=== PATIENT | female | born 1975 | race Caucasian/White ===

== ENCOUNTER → 2016-11-14 | Outpatient (CLI) | payer OTHER ==
[~2016-11-14] MED LIST: ASPIRIN ADULT L81 M1 PO; Carafate1 GM PO; FLEXERIL10 MG PO; IBUPROFEN600 MG PO; IRON50 MG PO; MOTRIN600 MG PO; NAPROSYN250 MG PO; NEXIUM40 MG PO; NKHM; NORCO 325 MG-51 TAB PO; PERCOCET 325 MG1 TA2 PO; PREDNICOT20 MG PO; PRILOSEC20 M1 PO; PRILOSEC20 MG PO; REGLAN10 MG PO; VITAMIN D1000 IU PO
== END | disposition home or self-care (01) ==
LOC: MAMMO 13:28
DX: Z12.31 Encounter for screening mammogram for malignant neoplasm of breast (principal)

== ENCOUNTER → 2017-03-13 | Outpatient (CLI) | payer OTHER | END | disposition home or self-care (01) | LOC: MRI 02-08 09:00 | DX: M25.562 Pain in left knee (principal); M22.8X2 Other disorders of patella, left knee ==

== ENCOUNTER → 2017-07-02 | Outpatient (CLI) | payer OTHER | END | disposition home or self-care (01) | LOC: ORTHO 02:05 | DX: M25.562 Pain in left knee (principal) ==

== ENCOUNTER → 2017-08-30 | Day surgery (SDC) | payer OTHER ==
[2017-08-28 12:19] LABS: BILIRUBIN NEGATIVE (NEGATIVE); BLOOD NEGATIVE (NEGATIVE); CLARITY SL CLOUDY (CLEAR); COLOR STRAW (YELLOW); GLUCOSE NEGATIVE (NEGATIVE); KETONE NEGATIVE (NEGATIVE); LEUKO ESTERASE NEGATIVE (NEGATIVE); NITRITE NEGATIVE (NEGATIVE); PH 5.5 (5.0-9.0); SPECIFIC GRAVITY <= 1.005 (1.005-1.030); UROBILINOGEN 0.2 E.U./dl (0.2-1.0)
[2017-08-28 12:41] LABS: BACTERIA TRACE; RBC 0-2 rbc/hpf (0-2)
[~2017-08-30] VITALS: Ht 167.6 cm; Wt 90.7 kg
[~2017-08-30] MED LIST changes: +IRON325 M1 PO; +PERCOCET 5-3251 EACH PO; +TOPAMAX100 M1 PO; +VITAMIN D5000 UNIT PO; +ZOFRAN4 MG PO
[2017-08-30 08:15] VITALS: BP 119/81
[2017-08-30 10:30] VITALS: BP 131/42
[2017-08-30 10:45] VITALS: BP 127/68
[2017-08-30 11:00] VITALS: BP 108/66
[2017-08-30 11:15] VITALS: BP 117/68
[2017-08-30 11:27] VITALS: BP 101/57
== END | disposition home or self-care (01) ==
LOC: SDC 08-14 08:00
PROVIDERS: Orthopaedic Surgery
DX: M22.42 Chondromalacia patellae, left knee (principal); M67.52 Plica syndrome, left knee; K21.9 Gastro-esophageal reflux disease without esophagitis; Z98.51 Tubal ligation status

== ENCOUNTER → 2017-10-19 | Outpatient (CLI) | payer OTHER ==
[2017-10-19 10:14] LABS: BASO % 0.4 % (0.0-1.0); EOS # 0.3 10*3/uL (0.0-0.4); EOS % 3.8 % (1.0-4.0); HEMATOCRIT 37.7 % (37.0-47.0); HEMOGLOBIN 11.8 g/dl (12.0-16.0); LYMPH # 2.3 10*3/uL (1.3-4.4); LYMPH % 30.5 % (27.0-41.0); MEAN CORPUSCULAR HGB 26.3 pg (27.0-31.0); MEAN CORPUSCULAR HGB CONC 31.3 g/dl (33.0-37.0); MEAN PLATELET VOLUME 9.3 fl (9.6-12.3); MONO # 0.6 10*3/uL (0.1-1.0); MONO % 7.8 % (3.0-9.0); NEUT # 4.4 10*3/uL (2.3-7.9); NEUT % 57.2 % (47.0-73.0); PLATELET COUNT AUTOMATED 316 10*3/uL (130-400); RED BLOOD COUNT 4.49 10*6/uL (4.10-5.10); WHITE BLOOD COUNT 7.7 10*3/uL (4.8-10.8)
[2017-10-19 10:39] LABS: ALBUMIN 3.1 gm/dl (3.1-4.5); ALKALINE PHOSPHATASE 85 U/L (45-117); BUN 11 mg/dl (7-24); CHLORIDE 109 mmol/L (98-107); CREATININE 0.75 mg/dL (0.55-1.02); FREE T4 0.97 ng/dl (0.76-1.46); POTASSIUM 3.8 mmol/L (3.5-5.1); SGOT/AST 19 IU/L (3-35); SGPT/ALT 20 U/L (12-78); SODIUM 139 mmol/L (136-145); TOTAL PROTEIN 7.1 gm/dL (6.4-8.2)
== END | disposition home or self-care (01) ==
LOC: LAB 09:45
PROVIDERS: Internal Medicine
DX: R20.2 Paresthesia of skin (principal)

== ENCOUNTER → 2017-12-31 | Outpatient (CLI) | payer OTHER | LOC: US 15:53 | DX: N92.0 Excessive and frequent menstruation with regular cycle (principal) ==

== ENCOUNTER 2019-03-01 15:24 | Emergency (ER) | payer OTHER ==
[~2019-03-01] VITALS: Ht 167.6 cm; Wt 96.6 kg
[2019-03-01 15:25] VITALS: BP 131/71
[2019-03-01] MEDS ORDERED: Motrin,Rufen800 MG PO (16:50)
== END 2019-03-01 18:00 | disposition home or self-care (01) ==
LOC: ED 15:24
DX: S93.491A Sprain of other ligament of right ankle, initial encounter (principal); Z98.51 Tubal ligation status; Z79.899 Other long term (current) drug therapy; W18.49XA Other slipping, tripping and stumbling without falling, initial encounter; Y93.89 Activity, other specified; Y92.89 Other specified places as the place of occurrence of the external cause; Y99.9 Unspecified external cause status

== ENCOUNTER → 2019-03-03 | Outpatient (CLI) | payer OTHER ==
[~2019-03-03] MED LIST changes: +Motrin,Rufen800 MG PO
== END | disposition home or self-care (01) ==
LOC: RAD 11:39
DX: M79.89 Other specified soft tissue disorders (principal); R60.0 Localized edema

== ENCOUNTER → 2020-06-15 | Outpatient (CLI) | payer OTHER | END | disposition home or self-care (01) | LOC: MAMMO 14:39 | PROVIDERS: ATTEND Internal Medicine | DX: Z12.31 Encounter for screening mammogram for malignant neoplasm of breast (principal); N64.89 Other specified disorders of breast ==

== ENCOUNTER → 2021-03-18 | Outpatient (CLI) | payer OTHER | END | disposition home or self-care (01) | LOC: RAD 10:01 | PROVIDERS: ATTEND Internal Medicine | DX: M25.561 Pain in right knee (principal); M25.562 Pain in left knee; M25.551 Pain in right hip ==

== ENCOUNTER → 2021-07-27 | Outpatient (CLI) | payer OTHER | END | disposition home or self-care (01) | LOC: US 14:00 | PROVIDERS: ATTEND Internal Medicine | DX: M79.89 Other specified soft tissue disorders (principal) ==

== ENCOUNTER → 2021-08-04 | Outpatient (CLI) | payer OTHER | END | disposition home or self-care (01) | LOC: RAD 10:48 | PROVIDERS: ATTEND Internal Medicine | DX: M25.562 Pain in left knee (principal) ==

== ENCOUNTER → 2024-02-22 | Outpatient (CLI) | payer BC, OTHER | END | disposition home or self-care (01) | LOC: ORTHO 01:57 | PROVIDERS: ATTEND Orthopaedic Surgery | DX: M25.511 Pain in right shoulder (principal) ==

== ENCOUNTER → 2024-05-29 | Outpatient (CLI) | payer OTHER | END | disposition home or self-care (01) | LOC: MRI 02:49 | PROVIDERS: ATTEND Orthopaedic Surgery | DX: M48.02 Spinal stenosis, cervical region (principal); M25.78 Osteophyte, vertebrae; M47.812 Spondylosis without myelopathy or radiculopathy, cervical region; M54.2 Cervicalgia; Z98.890 Other specified postprocedural states ==

== ENCOUNTER → 2024-07-15 | Outpatient (CLI) | payer OTHER | END | disposition home or self-care (01) | LOC: LAB 15:40 | PROVIDERS: ATTEND Internal Medicine | DX: J02.9 Acute pharyngitis, unspecified (principal) ==